=== PATIENT | male | born 1985 | race Caucasian/White ===

== ENCOUNTER 2020-09-16 06:00 | Day surgery (SDC) | payer OTHER ==
--- NOTE | 2020-09-16 06:23 | NUR ---
PT NON VERBAL CT SCAN TECHNICIAN PRESENT.
[2020-09-16] MEDS ORDERED: KLONOPIN2 MG PO (06:28)
[2020-09-16] MEDS ORDERED: DIVALPROEX SOD500 MG PO (06:29)
[2020-09-16] MEDS ORDERED: DOCUSATE SODIU100 M1 PO (06:30)
[2020-09-16] MEDS ORDERED: OLANZAPINE10 MG PO (06:31)
[2020-09-16] MEDS ORDERED: PROPRANOLOL HCL10 MG PO ×2 (06:31→06:32)
[2020-09-16] MEDS ORDERED: RISPERDAL2 MG PO (06:32)
[2020-09-16] MEDS ORDERED: FOLIXAPURE5000 UNIT PO (06:33)
[2020-09-16] MEDS ORDERED: ADVIL200 MG PO (06:34)
[2020-09-16] MEDS ORDERED: TYLENOL325 MG PO (06:34)
--- NOTE | 2020-09-16 06:49 | NUR ---
SATURDAY DATA ANALYTICS DEVELOPER STATES PT RUNNING AND FELL. BRUISES ONLY.
--- NOTE | 2020-09-16 06:51 | NUR ---
PT NOT COOPERATIVE FOR IV
--- NOTE | 2020-09-16 09:04 | NUR ---
09/16/20 0904 Priya Woodruff 0805 PT ARRIVED SITTING IN HIGH FOWLERS AND O2 10L IN PLACE VIA MASK. PT ASLEEP AND RESP EVEN AND UNLABORED. VSS.
--- NOTE | 2020-09-16 13:34 | NUR ---
0940 REPORT RECVD. PT QUIET BUT NOT ALLOWING BP. CAREGIVER AT BS. PT DOES NOT HAVE IV.
--- NOTE | 2020-09-16 13:35 | NUR ---
1000 ATE PUDDING. STAGGERING ABOUT IN ROOM WITH ATTENDS DOWN HAS HAD VERY LARGE BM AND IS SMEARED ON CAREGIVER DOWN HER LEG. ON BED, FRONT OF BSC, ON FLOOR. ATTEMPTING TO CLEAN UP PT. HE CONTINUES TO MOVE ABOUT IN ROOM. FINALLY CLEANED BACKSIDE THEN LAYED ON BED AND CLEANED LEGS FEET AND FRONT PERINEUM. GETTING DRESSED. PT REFUSED TO STAY IN ROOM WALKING IN HALLWAY. GETTING DC INSTRUCTIONS, COULDNT FIND PT. HE TOOK OFF TO VAN IN PARKING LOT. CAREGIVER PULLED UP TO FRONT OF HOSPITAL AND WENT THERE TO GIVE DC INSTRUCTIONS AT 1030.
--- NOTE | 2020-09-16 13:37 | NUR ---
[id number]: PT ARRIVES BACK TO DS RM 5 FROM PACU AWAKE. PT HAS SMALL AMOUNT OF DRIED BLOOD ON LIPS, NO ACTIVE BLEEDING FROM GUMS. PT DOES NOT APPEAR TO BE IN PAIN. THIS RN UNABLE TO GET BP, PT IMMEDIATELY RIPS CUFF OFF. PT DOES NOT HAVE AN IV IN PLACE, PER REPORT PT REMOVED IN PACU. PT PULLING BLANKET OVER HEAD, CAREGIVER AT BEDSIDE. PT PROVIDED ICED WATER AND PUDDING, ABLE TO FEED SELF.
== END 2020-09-16 10:30 | disposition home or self-care (01) ==
LOC: DS 06:00 → OPS 06:00 → DS 06:45 → OPS 10:30
PROVIDERS: ATTEND Dentist General Practice
PROC: 0CCWXZ1 Extirpation of Matter from Upper Tooth, Multiple, External Approach (ICD-10-PCS; 2020-09-16)
PROC: 0CCXXZ1 Extirpation of Matter from Lower Tooth, Multiple, External Approach (ICD-10-PCS; principal; 2020-09-16 06:45)
DX: K03.6 Deposits [accretions] on teeth (principal); F84.0 Autistic disorder; Z79.899 Other long term (current) drug therapy; Z88.2 Allergy status to sulfonamides; Z88.0 Allergy status to penicillin; Z88.1 Allergy status to other antibiotic agents; Z01.812 Encounter for preprocedural laboratory examination; Z20.828 Contact with and (suspected) exposure to other viral communicable diseases
CPT/HCPCS: 00170; 80053; 85025; J0330; J1100; J1885; J2250; J2405; J2704; J2765; J3010; J7121

== ENCOUNTER 2023-03-01 06:54 | Day surgery (SDC) | payer OTHER ==
[~2023-03-01] VITALS: Ht 185.4 cm; Wt 88.5 kg
[~2023-03-01 06:54] MED LIST: ADVIL200 MG PO; DIVALPROEX SOD500 MG PO; DOCUSATE SODIU100 M1 PO; FOLIXAPURE5000 UNIT PO; KLONOPIN2 MG PO; OLANZAPINE10 MG PO; PROPRANOLOL HCL10 MG PO; RISPERDAL2 MG PO; TYLENOL325 MG PO
--- NOTE | 2023-03-01 07:25 | NUR ---
PT HAS CONTINUOUS PULSE OX IN PLACE. OXYGEN SAT HIGH 90'S ON RA.
[2023-03-01 07:28] VITALS: BP 111/74
[2023-03-01] MEDS ORDERED: CLARITIN10 M2 PO (07:41)
[2023-03-01] MEDS ORDERED: OLANZAPINE5 MG PO (07:42)
[2023-03-01] MEDS ORDERED: GAVILAX17 GM PO (07:44)
[2023-03-01] MEDS ORDERED: PROPRANOLOL HCL10 MG PO (08:00)
--- NOTE | 2023-03-01 08:02 | NUR ---
0755- PT'S IV TO THE LEFT HAND WRAPPED WITH KERLIX AND TAPE TO KEEP SAFE. PT AWAKE ON AND OFF. BP CUFF TAKEN OFF. CONTINUOUS PULSE OX LEFT IN PLACE. 0802- PT PROVIDED A WARM BLANKET. PT LAYING HIS HEAD BACK. CAREGIVERS BOTH AT THE BEDSIDE. EDUCATED CAREGIVERS ON USING THE CALL LIGHT FOR ANY NEEDS OR IF THE PT BECOMES DIFFICULT TO CALM. BOTH PARTIES STATE UNDERSTANDING.
--- NOTE | 2023-03-01 09:10 | NUR ---
0901- CAREGIVERS ARE GETTING THE PT DRESSED. PT TRYING TO GET UP AND OUT OF BED. PT WILL NOT ALLOW VITALS SIGNS TO BE TAKEN AND IS JERKING HIS ARMS AWAY. 0906- PT AMBULATES WITH THE CAREGIVER TO THE BATHROOM. PT APPEARS TO BE LOOKING TO LEAVE. PT DIRECTED TOWARDS THE EXIT BY HIS CAREGIVERS. PT AMBULATES WITH ASSISTANCE FROM CAREGIVERS TO THE WHEELCHAIR. PT TRYING TO GET OUT OF THE WHEELCHAIR WELL. PT'S CAREGIVERS NOTIFIED OF THE RISKS OF LEAVING WITH THE PT DUE TO THE MEDICATIONS HE HAS RECEIVED WHILE BEING AT THE HOSPITAL. AMA FORM SIGNED. CAREGIVERS- PAUL AND JESSE FROM [facility], [place] ACKNOWLEDGE THE RISKS ASSOCIATED WITH LEAVING THE HOSPITAL AND JESSE STATES, "I WILL BE STAYING WITH HIM AND WATCHING HIM". NOTIFIED THE CAREGIVERS TO CALL THE AMBULANCE OR BRING HIM TO THE EMERGENCY ROOM FOR CONCERNS. BOTH PARTIES STATE UNDERSTANDING.
--- NOTE | 2023-03-01 09:26 | NUR ---
LE 0812-INTO PATIENT'S ROOM. PATIENT IS AGITATED MOVING HANDS AND ARMS ATTEMPTING TO GET OUT OF BED. BOTH CAREGIVERS TRYING TO REDIRECT PATIENT AND CALM PATIENT. TAYLOR MALDONADO UPDATED ON PATIENT CONDITION. LE 0815-NEW ORDERS FOR IV VERSED, MAY GIVE UPTO 5MG PER TAYLOR MALDONADO. LE 0819-PATIENT CONTINUES TO BE AGITATED MOVING HIS HANDS AND ARMS. ATTEMPT TO GIVE 2MG OF VERSED IV. PATIENT ROLLING WRIST AROUND AND DISLODGES IV. IV THEN REMOVED WITH TIP INTACT, GAUZE AND COBAN PLACED OVER IV SITE. LE 0825-TAYLOR MALDONADO UPDATED ON SITUATION. VO FOR IM VERSED UPTO 5MG. LE 0837-PATIENT CONTINUES TO BE AGITATED BOTH CAREGIVERS AT BEDSIDE TRYING TO CALM PATIENT. 3MG OF VERSED GIVEN IM IN LEFT THIGH. PER PULSE OX O2 GREATER THAN 95%, RESP EVEN AND UNLABORED. NO SIGNS OF DISTRESS.
--- NOTE | 2023-03-01 10:13 | NUR ---
LE 0900-PATIENT IS GETTING DRESSED WITH THE HELP OF HIS CAREGIVERS. CAREGIVER STATES "WE CAN NOT KEEP HOLDING HIM DOWN". STATES THEY ARE TAKING HIM HOME. THIS RN REPORTED UPDATE TO DORA ESCOBAR.
--- NOTE | 2023-03-01 10:29 | NUR ---
OLVIN 0850: THIS RN POKES HER HEAD IN THE ROOM TO CHECK ON PT AFTER IM VERSED. CAREGIVERS ARE STILL HAVING TO HOLD HIS HANDS TO KEEP HIM FROM CRAWLING OUT OF THE BED.
--- NOTE | 2023-03-01 10:38 | NUR ---
OLVIN 0858-CAREGIVERS HELPING PATIENT GET DRESSED. CAREGIVER STATES "WE CAN NOT KEEP HOLDING HIM DOWN". STATES THEY ARE GOING TO LEAVE. FISH JOHN RN ON SITUATION.
--- NOTE | 2023-03-01 10:54 | NUR ---
MIRANDA ADAMES CONTACTED AT [phone]. MIRANDA REPORTS THE PT IS HOME NOW AND HAS ATE BREAKFAST AND IS "HAPPY CAN BE". COPY OF AMA FORM FAXED TO THEM THE PT LEFT WITHOUT THE PAPER. SENT TO [phone].
--- NOTE | 2023-03-01 15:14 | NUR ---
[facility] CALLED TO CHECK ON THE PT. GEORGIE FROM [facility] STATES THE PT IS "BACK TO BASELINE" AND HE IS DOING WELL, EATING AND DRINKING.
== END 2023-03-01 09:10 | disposition left against medical advice (07) ==
LOC: DS 06:54 → OPS 06:54 → DS 10:00
PROVIDERS: ATTEND Dentist General Practice
DX: Z01.20 Encounter for dental examination and cleaning without abnormal findings (principal); Z53.8 Procedure and treatment not carried out for other reasons; F84.0 Autistic disorder; F79 Unspecified intellectual disabilities; Z88.0 Allergy status to penicillin; Z88.2 Allergy status to sulfonamides; Z88.1 Allergy status to other antibiotic agents
CPT/HCPCS: 00170; 36415; 80048; 85025; J0330; J1100; J1885; J2250; J2405; J2704; J2765; J3010; J3490; J7121